=== PATIENT | male | born 1965 | race Caucasian/White ===

== ENCOUNTER 2019-07-16 20:22 | Emergency (ER) | payer SELFPAY ==
[~2019-07-16] VITALS: Ht 170.2 cm; Wt 99.8 kg
[2019-07-16 20:37] VITALS: Ht 170.2 cm; Wt 99.8 kg
[2019-07-16 21:29] LABS: BASOPHIL % 0.4 % (0-2); RED CELL DISTRIBUTION WIDTH 14.4 % (11.5-14.5)
[2019-07-16 21:34] LABS: CALCIUM 8.1 mg/dL (8.5-10.1); CARBON DIOXIDE 28.5 mmol/L (21-32); CHLORIDE SERUM 108 mmol/L (98-107); CREATININE SERUM 0.9 mg/dL (0.7-1.3); GFR1 > 60 mL/min; GLUCOSE SERUM 133 mg/dL (74-106); POTASSIUM SERUM 3.5 mmol/L (3.5-5.1); SODIUM SERUM 144 mmol/L (136-145)
[2019-07-16 21:38] LABS: ALBUMIN 2.6 g/dL (3.4-5.0); ALKALINE PHOSPHATASE 182 U/L (46-116); ALT/SGPT 158 U/L (16-63); AST/SGOT 147 U/L (15-37); BILIRUBIN TOTAL 0.8 mg/dL (0.20-1.00); LIPASE 163 IU/L (73-393); TOTAL PROTEIN, SERUM 7.1 g/dL (6.4-8.2)
[2019-07-16 21:41] LABS: PLATELET COUNT 56 x10^3mcL (130-400)
[2019-07-16 23:19] VITALS: BP 160/79
== END 2019-07-16 23:19 | disposition home or self-care (01) ==
LOC: ED 20:22
PROVIDERS: Emergency Medicine
DX: R74.8 Abnormal levels of other serum enzymes (principal); R42 Dizziness and giddiness; I10 Essential (primary) hypertension; Z88.0 Allergy status to penicillin
CPT/HCPCS: 36415; Q0092

== ENCOUNTER 2019-11-07 10:36 | Emergency (ER) | payer OTHER ==
[~2019-11-07] VITALS: Ht 170.2 cm; Wt 129.3 kg
[2019-11-07 10:51] VITALS: Ht 170.2 cm; Wt 129.3 kg
[2019-11-07 11:41] LABS: BASOPHIL % 0.5 % (0-2); RED CELL DISTRIBUTION WIDTH 13.8 % (11.5-14.5)
[2019-11-07 11:42] LABS: PLATELET COUNT 65 x10^3mcL (130-400)
[2019-11-07 11:53] LABS: SODIUM SERUM 138 mmol/L (136-145)
[2019-11-07 11:54] LABS: ALBUMIN 2.9 g/dL (3.4-5.0); ALT/SGPT 194 U/L (16-63); AST/SGOT 161 U/L (15-37); BILIRUBIN TOTAL 0.84 mg/dL (0.20-1.00); CALCIUM 8.3 mg/dL (8.5-10.1); CARBON DIOXIDE 26.7 mmol/L (21-32); CHLORIDE SERUM 104 mmol/L (98-107); CREATININE SERUM 0.7 mg/dL (0.7-1.3); GFR1 > 60 mL/min; GLUCOSE SERUM 99 mg/dL (74-106); POTASSIUM SERUM 3.7 mmol/L (3.5-5.1); TOTAL PROTEIN, SERUM 7.5 g/dL (6.4-8.2)
[2019-11-07 11:55] LABS: ALKALINE PHOSPHATASE 157 U/L (46-116)
[2019-11-07 12:46] LABS: AMPHETAMINE QUAL UR NEGATIVE (See below)
[2019-11-07 13:18] VITALS: BP 132/93
== END 2019-11-07 13:18 | disposition home or self-care (01) ==
LOC: ED 10:36
PROVIDERS: Emergency Medicine
DX: I10 Essential (primary) hypertension (principal); R60.9 Edema, unspecified; F17.210 Nicotine dependence, cigarettes, uncomplicated; Z88.0 Allergy status to penicillin
CPT/HCPCS: 36415; 83880; 99406; Q0092